=== PATIENT | male | born 1960 | race Caucasian/White ===

== ENCOUNTER 2018-12-22 09:30 | Emergency (ER) | payer BC ==
--- NOTE | 2018-12-22 09:38 | ED Physician Documentation ---
History of Present Illness - Stated complaint Stated Complaint: FACIAL SWELLING - Chief complaint Chief Complaint: Allergic Rx - History obtained from History obtained from: Patient - Additonal information Additional information: Patient is a 58-year-old male with history of high cholesterol presenting with mild facial swelling over nasal bridge and upper cheeks over the past several days. 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 Patient reports chronic sinus issues that are unchanged from usual deny significant sinus pain or pressure, sinus congestion, rhinorrhea, throat complaints, tooth complaints, vision changes, fever, difficulty breathing or other issues. Patient denies any other skin changes such as erythema, blistering, or rash. No other improving or worsening factors noted. Review of Systems Constitutional: denies: Fever Eyes: denies: Loss of vision, Decreased vision, Photophobia, Discharge, Irritation Nose: denies: Rhinorrhea / runny nose, Congestion, Epistaxis, Sinus pressure / pain Throat: denies: Dental pain / toothache, Oral lesions / sores, Sore throat Respiratory: denies: Dyspnea PD PAST MEDICAL HISTORY - Past Medical History Cardiovascular: High cholesterol - Past Surgical History Past Surgical History: No - Present Medications Home Medications: Ambulatory Orders Medication Instructions Recorded Confirmed Aspirin Chewable [St Antonino 81 mg PO DAILY 12/22/18 12/22/18 Aspirin] Atorvastatin [Lipitor] 0 mg 12/22/18 Cetirizine [ZyrTEC] 10 mg PO DAILY 12/22/18 12/22/18 predniSONE [Deltasone] 10 mg PO [id number] #[id number] tab 12/22/18 - Allergies Allergies/Adverse Reactions: Allergies Allergy/AdvReac Type Severity Reaction Status Date / Time No Known Drug Allergies Allergy Verified 12/22/18 09:35 PD ED PE NORMAL - Vitals Vital signs reviewed: Yes - General General: Alert and oriented X 3, No acute distress, Well developed/nourished - HEENT HEENT: Atraumatic, Moist mucous membranes, Pharynx benign, Dentition benign, Other (Extremely mild appreciable swelling to nasal bridge and bilateral maxillary area without palpable tenderness or other overlying skin changes.) - Neck Neck: Supple, no meningeal sign - Cardiac Cardiac: RRR, No murmur - Respiratory Respiratory: No respiratory distress, Clear bilaterally - Derm Derm: Normal color, Warm and dry, No rash - Extremities Extremities: No deformity, No tenderness to palpate - Neuro Neuro: Alert and oriented X 3, No motor deficit, No sensory deficit - Psych Psych: Normal mood, Normal affect Results - Vitals Vitals: Vital Signs - 24 hr 12/22/18 09:32 Temperature 37.1 C Heart Rate 87 Respiratory 20 Rate Blood Pressure 134/80 H O2 Saturation 97 Oxygen O2 Source Room air PD MEDICAL DECISION MAKING - ED course Complexity details: considered differential, d/w patient, d/w family ED course: Patient presenting with appearance of uncomplicated facial edema. Do not find evidence of cellulitis or have concern for abscess. Do not feel this is related to acute sinusitis or other infectious process. Patient does report change of medication recently and could be experiencing an allergic component, although no anaphylaxis or respiratory compromise. At this time, do not feel patient requires invasive testing or imaging. Discussed use of steroids and other supportive cares, return precautions, follow-up. Patient and voiced understanding and are comfortable with discharge plan. Departure - Departure Disposition: 01 Home, Self Care Clinical Impression: Facial edema Condition: Good Instructions: ED Drug React Allergic, ED Allergic Reaction Local Other Follow-Up: Alhaji Cantor MD [Primary Care Provider] - Within 3 Days Prescriptions: predniSONE [Deltasone] 10 mg PO [id number] #42 tab Comments: May continue home medications as previously instructed. Please use prednisone as instructed to treat facial swelling. May also apply ice and try other [id number] medications such as ibuprofen/Tylenol to help reduce inflammation. Please follow-up with your primary care physician in next 2 to 3 days and return to ED sooner if experience worsening symptoms or have other concerns.
[2018-12-22 10:13] VITALS: BP 134/87
== END 2018-12-22 10:12 | disposition home or self-care (01) ==
LOC: ED 09:30
DX: R60.0 Localized edema (principal)
CPT/HCPCS: 99282